=== PATIENT | male | born 1950 | race Caucasian/White ===

== ENCOUNTER 2020-02-25 10:58 | Emergency (ER) | payer MEDICARE, BC ==
--- NOTE | 2020-02-25 11:32 | EDM.PDOC ---
ED HPI GENERAL MEDICAL PROBLEM - General Chief Complaint: Head Injury Stated Complaint: HEAD INJURY Time Seen by Provider: 02/25/20 10:59 Source of Information: Reports: Patient History Limitations: Reports: No Limitations - History of Present Illness INITIAL COMMENTS - FREE TEXT/NARRATIVE: HISTORY AND PHYSICAL: History of present illness: Patient is a 69-year-old male who presents to the ED today with concern of head injury that occurred 2 days ago. Patient states that 2 days ago he was walking on the ice and he was wearing spikes on his shoes. Patient states the spike on his right shoe came loose and he tried to adjust to stop and slipped. Patient states he fell backwards and hit the back of his head. Patient states he did not lose consciousness during the event and was wearing a beanie and a sweatshirt so had "Pat". Patient states that he had some discomfort in the area directly that hit the ice but states other than that he did not have any symptoms until today. Patient states he was driving to go [place] today when he began having a sharp headache that he states was in the back of his head. Patient states he continued to drive and the headache moved to the front of his head. Patient states that he did not have a headache ever since the head injury so felt anxious so decided to come to be evaluated. States he has a history of hypertension and hyperlipidemia but denies any other health history. Patient denies fever, chills, chest pain, shortness of breath, or cough. Denies neck stiff ness, change in vision, syncope, or near syncope. Denies nausea, vomiting, abdominal pain, diarrhea, constipation, or dysuria. Has not noted any blood in urine or stool. Patient has been eating and drinking appropriately. Review of systems: As per history of present illness and below otherwise all systems reviewed and negative. Past medical history: As per history of present illness and as reviewed below otherwise noncontributory. Surgical history: As per history of present illness and as reviewed below otherwise noncontributory. Social history: See social history for further information Family history: As per history of present illness and as reviewed below otherwise noncontributory. Physical exam: General: Patient is alert, oriented, and in no acute distress. Patient laying comfortably on exam table. HEENT: Atraumatic, normocephalic, pupils equal and reactive bilaterally, negative for conjunctival pallor or scleral icterus, mucous membranes moist, TMs normal bilaterally, throat clear, neck supple, nontender, trachea midline. No drooling or trismus noted. No meningeal signs. No hot potato voice noted. Lungs: Clear to auscultation, breath sounds equal bilaterally, chest nontender. Heart: S1S2, regular rate and rhythm without overt murmur Abdomen: Soft, nondistended, nontender. Negative for masses or hepatosplenomegaly. Negative for costovertebral tenderness. Pelvis: Stable nontender. Genitourinary: Deferred. Rectal: Deferred. Skin: Intact, warm, dry. No lesions or rashes noted. Extremities: Atraumatic, negative for cords or calf pain. Neurovascular unremarkable. Neuro: Awake, alert, oriented. Cranial nerves II through XII unremarkable. Cerebellum unremarkable. Motor and sensory unremarkable throughout. Exam nonfocal. Notes: Dr. Segura directly involved in patient care. Upon initial exam, patient states that headache has improved and he would not like any medication for his headache at this time. Awaiting imaging. I called and spoke to Dr. Conley (ER) and Dr. Hopson (Neurosurgery) at [facility] and accepting of patient transfer. Flight arranged. Upon evaluation of patient, his headache has worsened again. Will give therapeutics at this time. Flight at bedside. Voices understanding and is agreeable to plan of care. Denies any further questions or concerns at this time. Patient remains stable throughout course in ED. Diagnostics: Head CT, CBC, CMP, Pt/INR, PTT Therapeutics: Morphine, Zofran Impression: Subdural hematoma with midline shift Plan: Transfer to [facility] via flight to Dr. Conley (ER)/ Dr. Hopson (Neurosurgery) Critical care time is exclusive of billable procedures and the time to perform these procedures. Critical care time was used to prevent vital system organ failure and deterioration. Critical care time includes bedside management and high-complexity decision making requiring my highest level of mental preparedness and attention. This includes reviewing the patient's chart, ordering and reviewing interpreting laboratory studies and imaging results, interpretation of vital signs and EKG, pulse oximetry, and discussion with nursing staff, flight team, and accepting facility team. Patient presented with critical imaging findings that required immediate interve ntion, requiring immediate transfer to a higher level care facilit requiring additional close monitoring and continuation of treatment CC Time: 30 minutes Definitive disposition and diagnosis as appropriate pending reevaluation and review of above. - Related Data Allergies Allergy/AdvReac Type Severity Reaction Status Date / Time No Known Allergies Allergy Verified 02/25/20 11:29 Home Meds: Home Meds Fish Oil/D Hanis-3 Fatty Acids [Fish Oil 1,000 MG] 1 cap PO DAILY 03/09/16 [History] Hydrochlorothiazide 25 mg PO DAILY 03/09/16 [History] Metoprolol Succinate 25 mg PO DAILY 03/09/16 [History] Multivitamin [Multiple Vitamins] 1 tab PO DAILY 03/09/16 [History] Tadalafil [Cialis] 1 tab PO ASDIRECTED PRN 03/09/16 [History] atorvaSTATin [Lipitor] 1 tab PO DAILY 03/09/16 [History] Aspirin 325 mg PO BID #60 tablet 03/15/16 [Rx] Hydrocodone/Acetaminophen [Hydrocodon-Acetaminophen 5-325] 1 dose PO Q4HR PRN #30 tablet 01/18/18 [Rx] Past Medical History Other HEENT History: wears glasses Cardiovascular History: Reports: High Cholesterol, Hypertension Respiratory History: Reports: Sleep Apnea Other Respiratory History: uses CPAP Gastrointestinal History: Reports: GERD Genitourinary History: Reports: None Musculoskeletal History: Reports: Arthritis Other Musculoskeletal History: knees Neurological History: Reports: None Psychiatric History: Reports: Anxiety, Depression Endocrine/Metabolic History: Reports: Obesity/BMI 30+ Hematologic History: Reports: None Immunologic History: Reports: None Oncologic (Cancer) History: Reports: None Dermatologic History: Reports: None - Infectious Disease History Infectious Disease History: Reports: None - Past Surgical History HEENT Surgical History: Reports: Tonsillectomy GI Surgical History: Reports: Colonoscopy, EGD Musculoskeletal Surgical History: Reports: Arthroscopic Knee, Knee Replacement, Other (See Below) Social & Family History - Family History Family Medical History: No Pertinent Family History - Caffeine Use Caffeine Use: Reports: Coffee ED ROS GENERAL - Review of Systems Review Of Systems: Comprehensive ROS is negative, except as noted in HPI. ED EXAM, HEAD INJURY - Physical Exam Exam: See Below (see dictation) Course - Vital Signs Last Recorded V/S: Last Vital Signs Temp 96.7 F L 02/25/20 11:11 Pulse 82 02/25/20 11:54 Resp 16 02/25/20 11:54 BP 160/101 H 02/25/20 11:54 Pulse Ox 93 L 02/25/20 11:54 - Orders/Labs/Meds Labs: Laboratory Tests 02/25/20 02/25/20 02/25/20 Range/Units 11:55 11:55 11:55 WBC 6.17 (4.0-11.0) K/uL RBC 4.69 (4.50-5.90) M/uL Hgb 14.4 (13.0-17.0) g/dL Hct 42.6 (38.0-50.0) % MCV 90.8 (80.0-98.0) fL MCH 30.7 (27.0-32.0) pg MCHC 33.8 (31.0-37.0) g/dL RDW Std Deviation 44.9 (28.0-62.0) fl RDW Coeff of Virgilio 14 (11.0-15.0) % Plt Count 185 (150-400) K/uL MPV 9.50 (7.40-12.00) fL Neut % (Auto) 59.9 (48.0-80.0) % Lymph % (Auto) 30.8 (16.0-40.0) % [place] % (Auto) 7.8 (0.0-15.0) % Eos % (Auto) 1.3 (0.0-7.0) % Baso % (Auto) 0.2 (0.0-1.5) % Neut # (Auto) 3.7 (1.4-5.7) K/uL Lymph # (Auto) 1.9 (0.6-2.4) K/uL [place] # (Auto) 0.5 (0.0-0.8) K/uL Eos # (Auto) 0.1 (0.0-0.7) K/uL Baso # (Auto) 0.0 (0.0-0.1) K/uL Nucleated RBC % 0.0 /100WBC Nucleated RBCs # 0 K/uL INR 1.00 APTT 22.3 (18.6-31.3) SEC Sodium 137 (136-148) mmol/L Potassium 4.1 (3.5-5.1) mmol/L Chloride 103 (98-107) mmol/L Carbon Dioxide 27.5 (21.0-32.0) mmol/L BUN 20 H (7.0-18.0) mg/dL Creatinine 1.2 (0.8-1.3) mg/dL Est Cr Clr Drug Dosing 64.67 mL/min Estimated GFR (MDRD) > 60.0 ml/min Glucose 112 H (74-106) mg/dL Calcium 9.8 (8.5-10.1) mg/dL Total Bilirubin 0.5 (0.2-1.0) mg/dL AST 27 (15-37) IU/L ALT 39 (14-63) IU/L Alkaline Phosphatase 104 (46-116) U/L Total Protein 7.4 (6.4-8.2) g/dL Albumin 3.6 (3.4-5.0) g/dL Globulin 3.8 (2.6-4.0) g/dL Albumin/Globulin Ratio 0.9 (0.9-1.6) Meds: Medications Discontinued Medications Generic Name Dose Route Start Last Admin Trade Name Freq PRN Reason Stop Dose Admin Morphine Sulfate 4 mg 02/25/20 12:12 02/25/20 12:26 Morphine IVPUSH 02/25/20 12:13 4 mg ONETIME ONE Administration Ondansetron HCl 4 mg 02/25/20 12:12 02/25/20 12:26 Zofran IVPUSH 02/25/20 12:13 4 mg ONETIME ONE Administration Departure - Departure Time of Disposition: 12:25 Disposition: DC/Tfer to Acute Hospital 02 Clinical Impression: Subdural hematoma, Midline shift of brain - Discharge Information Referrals: Dionte Berman MD [Primary Care Provider] - Forms: ED Department Discharge Sepsis Event Note (ED) - Focused Exam Vital Signs: Vital Signs Temp Pulse Resp BP Pulse Ox 02/25/20 11:54 82 16 160/101 H 93 L 02/25/20 11:23 77 152/86 H 92 L 02/25/20 11:11 96.7 F L 73 18 157/89 H 95
[2020-02-25 12:10] VITALS: BP 160/101; PULSE 82
--- NOTE | 2020-02-25 12:11 | CT ---
INDICATION: Headache following fall 2 days prior TECHNIQUE: CT head without contrast. COMPARISON: None FINDINGS: CSF spaces: Within normal limits for age. Brain parenchyma: Left holo-hemispheric subdural hematoma measuring up to 12 millimeters in diameter with extension along the anterior falx and effacement of the left hemispheric sulci. 6 millimeters of [id number] midline shift with near total effacement of the left lateral and 3rd ventricles. No mass is identified. Skull base and calvarium: The visualized paranasal sinuses and mastoid air cells demonstrate no acute or significant findings. The visualized orbits are grossly unremarkable. No skull fractures. IMPRESSION: Left holo-hemispheric subdural hematoma measuring up to 12 millimeters in diameter with extension along the anterior falx and effacement of the left hemispheric sulci. 6 millimeters of [id number] midline shift with near total effacement of the left lateral and 3rd ventricles. Findings discussed on 02/25/[address] Veras at 12:09 p.m. Please note that all CT scans at this facility use dose modulation, iterative reconstruction, and/or weight-based dosing when appropriate to reduce radiation dose to as low as reasonably achievable. Dictated by Thanh Kaufman MD @ Feb 25 2020 12:10PM Signed by Dr. Thanh Kaufman @ Feb 25 2020 12:10PM
--- NOTE | 2020-02-25 12:17 | PCM.SN.2 ---
- Free Text/Narrative Note: I saw and evaluated the patient along with the mid-level provider. My independent exam confirms no palpable deformity of the cranium there is no midline tenderness of the C-spine he has no midline tenderness with neck range of motion you can clinically clear the spine. Traumatic exam involving the chest abdomen pelvis and extremities is likewise atraumatic. He is awake and alert. His neurologic exam is normal. CT scan has a left-sided subdural hematoma with approximately 6 mm of midline shift and we are currently attempting to arrange transport to [facility] in my not for subspecialty care and further management. Vital signs remained stable he is complaining of a worsening posterior headache and morphine Zofran ordered for symptoms. In my opinion the patient does not meet trauma activation criteria. The injury is > 24 hours old. He is on an 81 mg ASA, no blood thinners, no NSAIDs today. Pt remained in stable condition his mental status remained normal. He was accepted for transfer to [facility] by neurosurgery and the ED provider. Pt was transfered via fixed wing due to significant delay for rotor and time critical diagnosis which made ground transport less safe.
[2020-02-25] MEDS: Ondansetron 4 MG/2 ML SDV IVPUSH ONE (12:26)
[2020-02-25] MEDS: Morphine 4 MG/ML Syringe IVPUSH ONE (12:26)
[2020-02-25 12:30] LABS: BLOOD UREA NITROGEN,BUN 20 mg/dL (7.0-18.0); CARBON DIOXIDE,CO2 27.5 mmol/L (21.0-32.0); CHLORIDE,CL 103 mmol/L (98-107); GLUCOSE RANDOM 112 mg/dL (74-106); POTASSIUM,K 4.1 mmol/L (3.5-5.1); SODIUM,NA 137 mmol/L (136-148)
== END 2020-02-25 12:36 ==
LOC: MW.ED 10:58
DX: S06.5X9A Traumatic subdural hemorrhage with loss of consciousness of unspecified duration, initial encounter (principal); E78.00 Pure hypercholesterolemia, unspecified; I10 Essential (primary) hypertension; M19.90 Unspecified osteoarthritis, unspecified site; E66.9 Obesity, unspecified; Z68.41 Body mass index [BMI] 40.0-44.9, adult; Z79.82 Long term (current) use of aspirin; Z79.899 Other long term (current) drug therapy; W00.0XXA Fall on same level due to ice and snow, initial encounter
CPT/HCPCS: 70450; 70450-26; 80053; 85025; 85610; 85730; 96374; 96375; 99285-25; 99291; J2270; J2405

== ENCOUNTER 2020-02-27 16:27 | Emergency (ER) | payer MEDICARE, BC ==
[2020-02-27] MEDS ORDERED: Sodium Chloride 0.9% 2.5 ML Syringe FLUSH PRN (16:31)
[2020-02-27] MEDS ORDERED: Sodium Chloride 0.9% 10 ML Syringe FLUSH PRN (16:31)
[2020-02-27 17:07] LABS: BLOOD UREA NITROGEN,BUN 17 mg/dL (7.0-18.0); CARBON DIOXIDE,CO2 27.3 mmol/L (21.0-32.0); CHLORIDE,CL 101 mmol/L (98-107); GLUCOSE RANDOM 99 mg/dL (74-106); POTASSIUM,K 3.9 mmol/L (3.5-5.1); SODIUM,NA 137 mmol/L (136-148)
--- NOTE | 2020-02-27 17:30 | EDM.PDOC ---
ED HPI GENERAL MEDICAL PROBLEM - General Chief Complaint: Neuro Symptoms/Deficits Stated Complaint: RECENT HEAD INJURY, FORGETFUL Time Seen by Provider: 02/27/20 16:30 - History of Present Illness INITIAL COMMENTS - FREE TEXT/NARRATIVE: Patient is a 69-year-old male with recent visit to the ED and transferred to [facility] for subdural hematoma presents with lack of memory. On initial evaluation the patient is quite confused he does not recall the fall a few days ago with the transfer to a higher level of care or anything else. He states that he woke up from a nap and his family was standing around him. He ca nnot recall anything else. He denies complaint and otherwise feels well beyond this. He acknowledges that this seems unusual. Additional history provided by the patient's son. He received a call from his mother that the patient had been normal in the morning had woken up from a nap this afternoon and was not acting right and on son's arrival he seemed sluggish and lethargic and confused and disoriented. There is no reported urinary or bowel incontinence no reported shaking. - Related Data Allergies Allergy/AdvReac Type Severity Reaction Status Date / Time No Known Allergies Allergy Verified 02/27/20 16:34 Home Meds: Home Meds Hydrochlorothiazide 25 mg PO DAILY 03/09/16 [History] Metoprolol Succinate 25 mg PO DAILY 03/09/16 [History] atorvaSTATin [Lipitor] 1 tab PO DAILY 03/09/16 [History] Tamsulosin HCl 0.4 mg PO DAILY 02/25/20 [History] Vilazodone [Viibryd] 40 mg PO DAILY 02/25/20 [History] levETIRAcetam [Keppra] 500 mg PO BID 30 Days #60 tablet 02/27/20 [Rx] Past Medical History Other HEENT History: wears glasses Cardiovascular History: Reports: High Cholesterol, Hypertension Respiratory History: Reports: Sleep Apnea Other Respiratory History: uses CPAP Gastrointestinal History: Reports: GERD Genitourinary History: Reports: None Musculoskeletal History: Reports: Arthritis Other Musculoskeletal History: knees Neurological History: Reports: None Psychiatric History: Reports: Anxiety, Depression Endocrine/Metabolic History: Reports: Obesity/BMI 30+ Hematologic History: Reports: None Immunologic History: Reports: None Oncologic (Cancer) History: Reports: None Dermatologic History: Reports: None - Infectious Disease History Infectious Disease History: Reports: None - Past Surgical History Head Surgeries/Procedures: Reports: None HEENT Surgical History: Reports: Tonsillectomy Other HEENT Surgeries/Procedures: removal of neck mass Cardiovascular Surgical History: Reports: None Respiratory Surgical History: Reports: None GI Surgical History: Reports: Colonoscopy, EGD Male Surgical History: Reports: None Endocrine Surgical History: Reports: None Neurological Surgical History: Reports: None Musculoskeletal Surgical History: Reports: Arthroscopic Knee, Knee Replacement, Other (See Below) Other Musculoskeletal Surgeries/Procedures:: removal of growth from tailbone Oncologic Surgical History: Reports: None Social & Family History - Family History Family Medical History: No Pertinent Family History - Tobacco Use Tobacco Use Status *Q: Never Tobacco User - Caffeine Use Caffeine Use: Reports: None ED ROS GENERAL - Review of Systems Review Of Systems: See Below Free Text/Narrative/Comment: General: No fever. Skin: No rash. Eyes: No vision problems. ENT: No sore throat. Neck: No neck stiffness. Respiratory: No shortness of breath. Cardiac: No chest pain. Gastrointestinal: No nausea, vomiting or abdominal pain. Urinary: No dysuria. Musculoskeletal: No myalgias/arthralgias. Neurologic: No headache. ED EXAM, GENERAL - Physical Exam Exam: See Below Free Text/Narrative:: General Appearance: No acute distress, appears comfortable Skin: No rash HEENT: Normocephalic/atraumatic, sclera anicteric, mucous membranes moist Neck: Normal range of motion Chest and Lungs: Bilateral breath sounds, clear to auscultation Cardiovascular: Regular rate and rhythm, no murmur Abdomen: Soft, non-tender Back: Normal Musculoskeletal: No edema or tenderness Neurologic: Cranial nerves III through XI intact bilaterally, strength 5 out of 5 in upper lower extremities, normal [id number] bilaterally, oriented to person and place but not to time unsure of date unsure of year does not recall any recent events Psychiatric: Appropriate, cooperative #1 Interpretation EKG Date: 02/27/20 Time: 17:31 EKG Interpretation Comments: EKG demonstrates normal sinus rhythm with a rate of 95 normal axis and intervals without acute ischemia Course - Vital Signs Last Recorded V/S: Last Vital Signs Temp 98.6 F 02/27/20 16:34 Pulse 90 02/27/20 18:16 Resp 17 02/27/20 16:34 BP 166/103 H 02/27/20 18:16 Pulse Ox 93 L 02/27/20 18:16 - Orders/Labs/Meds Orders: Active Orders 24 hr Category Date Time Status EKG Documentation Completion [RC] STAT Care 02/27/20 16:31 Active Sodium Chloride 0.9% [Saline Flush] Med 02/27/20 16:31 Active 10 ml FLUSH ASDIRECTED PRN Sodium Chloride 0.9% [Saline Flush] Med 02/27/20 16:31 Active 2.5 ml FLUSH ASDIRECTED PRN Saline Lock Insert [OM.PC] Stat Oth 02/27/20 16:31 Ordered Medication Orders Sodium Chloride (Saline Flush) 10 ml FLUSH ASDIRECTED PRN PRN Reason: Keep Vein Open Last Admin: 02/27/20 16:39 Dose: 10 ml Documented by: LORRI Sodium Chloride (Saline Flush) 2.5 ml FLUSH ASDIRECTED PRN PRN Reason: Keep Vein Open Last Admin: 02/27/20 16:38 Dose: 2.5 ml Documented by: LORIR Labs: Laboratory Tests 02/27/20 02/27/20 Range/Units 16:34 16:34 WBC 8.21 (4.0-11.0) K/uL RBC 4.78 (4.50-5.90) M/uL Hgb 14.8 (13.0-17.0) g/dL Hct 43.5 (38.0-50.0) % MCV 91.0 (80.0-98.0) fL MCH 31.0 (27.0-32.0) pg MCHC 34.0 (31.0-37.0) g/dL RDW Std Deviation 44.7 (28.0-62.0) fl RDW Coeff of Virgilio 14 (11.0-15.0) % Plt Count 211 (150-400) K/uL MPV 9.50 (7.40-12.00) fL Neut % (Auto) 55.2 (48.0-80.0) % Lymph % (Auto) 36.7 (16.0-40.0) % Porter % (Auto) 6.7 (0.0-15.0) % Eos % (Auto) 1.0 (0.0-7.0) % Baso % (Auto) 0.4 (0.0-1.5) % Neut # (Auto) 4.5 (1.4-5.7) K/uL Lymph # (Auto) 3.0 H (0.6-2.4) K/uL Porter # (Auto) 0.6 (0.0-0.8) K/uL Eos # (Auto) 0.1 (0.0-0.7) K/uL Baso # (Auto) 0.0 (0.0-0.1) K/uL Nucleated RBC % 0.0 /100WBC Nucleated RBCs # 0 K/uL Sodium 137 (136-148) mmol/L Potassium 3.9 (3.5-5.1) mmol/L Chloride 101 (98-107) mmol/L Carbon Dioxide 27.3 (21.0-32.0) mmol/L BUN 17 (7.0-18.0) mg/dL Creatinine 1.1 (0.8-1.3) mg/dL Est Cr Clr Drug Dosing 70.55 mL/min Estimated GFR (MDRD) > 60.0 ml/min Glucose 99 (74-106) mg/dL Calcium 9.9 (8.5-10.1) mg/dL Total Bilirubin 0.5 (0.2-1.0) mg/dL AST 19 (15-37) IU/L ALT 34 (14-63) IU/L Alkaline Phosphatase 108 (46-116) U/L Troponin I < 0.050 (0.000-0.056) ng/mL Total Protein 7.9 (6.4-8.2) g/dL Albumin 3.8 (3.4-5.0) g/dL Globulin 4.1 H (2.6-4.0) g/dL Albumin/Globulin Ratio 0.9 (0.9-1.6) Ethyl Alcohol < 3.0 mg/dL Meds: Medications Generic Name Dose Route Start Last Admin Trade Name Freq PRN Reason Stop Dose Admin Sodium Chloride 10 ml 02/27/20 16:31 02/27/20 16:39 Saline Flush FLUSH 10 ml ASDIRECTED PRN Administration Keep Vein Open Sodium Chloride 2.5 ml 02/27/20 16:31 02/27/20 16:38 Saline Flush FLUSH 2.5 ml ASDIRECTED PRN Administration Keep Vein Open Discontinued Medications Generic Name Dose Route Start Last Admin Trade Name Bennett PRN Reason Stop Dose Admin Levetiracetam 500 mg 02/27/20 17:55 02/27/20 18:15 Keppra PO 02/27/20 17:56 500 mg NOW ONE Administration Departure - Departure Time of Disposition: 18:41 Disposition: Home, Self-Care 01 Condition: Good Clinical Impression: Seizure, Subdural hematoma - Discharge Information *PRESCRIPTION DRUG MONITORING PROGRAM REVIEWED*: Not Applicable *COPY OF PRESCRIPTION DRUG MONITORING REPORT IN PATIENT YUN: Not Applicable Prescriptions: levETIRAcetam [Keppra] 500 mg PO BID 30 Days #60 tablet Instructions: Seizure, Adult Forms: ED Department Discharge Additional Instructions: Please be sure to fill your Keppra prescription your next dose is due tomorrow morning. You should receive a phone call from the neurosurgery clinic between 730 and 8 AM on Saturday. If you do not hear from them by 9 AM please call them yourself. The following information is given to patients seen in the emergency department who are being discharged to home. This information is to outline your options for follow-up care. We provide all patients seen in our emergency department with a follow-up referral. The need for follow-up, as well as the timing and circumstances, are variable depending upon the specifics of your emergency department visit. If you don't have a primary care physician on staff, we will provide you with a referral. We always advise you to contact your personal physician following an emergency department visit to inform them of the circumstance of the visit and for follow-up with them and/or the need for any referrals to a consulting specialist. The emergency department will also refer you to a specialist when appropriate. This referral assures that you have the opportunity for follow-up care with a specialist. All of these measure are taken in an effort to provide you with optimal care, which includes your follow-up. Under all circumstances we always encourage you to contact your private physician who remains a resource for coordinating your care. When calling for follow-up care, please make the office aware that this follow-up is from your recent emergency room visit. If for any reason you are refused follow-up, please contact the [facility] Emergency Department at and asked to speak to the emergency department charge nurse. Sepsis Event Note (ED) - Evaluation Sepsis Screening Result: No Definite Risk - Focused Exam Vital Signs: Vital Signs Temp Pulse Resp BP Pulse Ox 02/27/20 18:16 90 166/103 H 93 L 02/27/20 16:34 98.6 F 107 H 17 152/101 H 98 - My Orders Last 24 Hours: My Active Orders 02/27/20 16:31 EKG Documentation Completion [RC] STAT Sodium Chloride 0.9% [Saline Flush] 10 ml FLUSH ASDIRECTED PRN Sodium Chloride 0.9% [Saline Flush] 2.5 ml FLUSH ASDIRECTED PRN Saline Lock Insert [OM.PC] Stat - Assessment/Plan Last 24 Hours: My Active Orders 02/27/20 16:31 EKG Documentation Completion [RC] STAT Sodium Chloride 0.9% [Saline Flush] 10 ml FLUSH ASDIRECTED PRN Sodium Chloride 0.9% [Saline Flush] 2.5 ml FLUSH ASDIRECTED PRN Saline Lock Insert [OM.PC] Stat Assessment:: Patient was seen immediately by myself at the request of the nurses. History is most consistent to me with seizure likely related to his known intracranial hemorrhage. Syncope considered but felt less likely worsening bleeding also considered and emergent CT ordered. However this is also felt less likely. Disposition pending results and discussion with neurosurgery. 1530: Per Dr. Rubio (radiology) Pt's CT shows stable left sided subdural hematoma with similar mass effect and shift. Labs unremarkable. On reassessment the patient is now back to normal he recalls all of the events well he remembers the flight in the helicopter he remembers the discussion with the neurosurgeon at [place] can recall Dr. Yeh recommendations in detail. He remembers being normal when he woke up this morning he remembers going down for a nap and remembers waking up with multiple family members around him. Patient discussed in full with Dr. Martins the neurosurgeon regional agronomist at [facility]. She stated that emergent drainage of these in absence of herniation or other truly emergent etiology is often quite morbid and that people often do better if it is evacuated with bur hole after 1 to 2 weeks. We discussed the CT findings in detail and I read the report to her we discussed that it appeared stable from his prior imaging. We discussed his clinical condition as well. She and I are in agreement that seizure is most likely. Given his stable CT scan his normal evaluation here no indication for transfer at this time. She recommends starting the patient on 500 mg of Keppra twice daily. The patient will be seen in their clinic this coming Saturday. He should expect a phone call between 730 and 8 AM with an appointment time. 1840: Patient was initially quite hypertensive this could easily have been related to the seizure. He reports compliance with his medications. On repeat assessment his blood pressure is improved markedly with an acceptable systolic. Patient is felt stable for discharge return precautions discussed and understood first dose of Keppra provided here. Instructions for follow-up with neurosurgery discussed and understood as well.
--- NOTE | 2020-02-27 17:34 | CT ---
Indication: Change in mental status. Known subdural. Technique: CT examination of brain was performed. Imaging was acquired from the skullbase to the vertex. Contrast was not administered. Comparison: A similar study from February 25, 2020 Findings: There is no calvarial fracture. There is a relatively large left-sided subdural hematoma. This overlies the near entirety of the left supra tentorial brain but is thickest in the posterior frontal and parietal area. Based on coronal measurements, this maximally measures between 1.2 and 1.4 centimeters which is unchanged by my measurements. This also extends interhemispheric and has some component overlying the falx. There is mass effect upon the subjacent left brain. The left lateral ventricular system is partially effaced and the 3rd ventricle is completely effaced. Based on midline coronal measurements, there is approximately 6-7 millimeters of rightward shift. Neurosurgical consultation regarding these findings is advised. I discussed the above findings with Dr. Segura at 5:29 p.m. on February 27, 2020 Impression: Relatively large left-sided subdural hematoma. Neurosurgical consultation is advised. Please note that all CT scans at this facility use dose modulation, iterative reconstruction, and/or weight-based dosing when appropriate to reduce radiation dose to as low as reasonably achievable. Dictated by Stephane Rubio MD @ Feb 27 2020 5:24PM Signed by Dr. Stephane Rubio @ Feb 27 2020 5:33PM
[2020-02-27] MEDS ORDERED: levETIRAcetam Soln 500 MG/5 ML Cup PO ONE (17:55)
[2020-02-27 18:56] VITALS: BP 166/95; PULSE 93
== END 2020-02-27 18:55 | disposition home or self-care (01) ==
LOC: MW.ED 16:27
DX: I62.00 Nontraumatic subdural hemorrhage, unspecified (principal); R56.9 Unspecified convulsions; E78.00 Pure hypercholesterolemia, unspecified; I10 Essential (primary) hypertension; F41.9 Anxiety disorder, unspecified; F32.9 Major depressive disorder, single episode, unspecified; E66.9 Obesity, unspecified; Z68.38 Body mass index [BMI] 38.0-38.9, adult; Z79.899 Other long term (current) drug therapy
CPT/HCPCS: 70450; 80053; 80179; 84484; 85025; 93005; 99284; A9270; 99285

== ENCOUNTER 2022-06-01 06:42 | Day surgery (SDC) | payer MEDICARE, OTHER ==
[~2022-06-01 06:42] MED LIST: Lactated Ringers 1,000 ML IV SCH
[2022-06-01] MEDS ORDERED: Bupivacaine 0.25% 30 ML SDV ONE (07:23)
[2022-06-01] MEDS ORDERED: fentaNYL 100 MCG/2 ML SDV ONE (07:35)
[2022-06-01] MEDS ORDERED: Propofol 200 MG/20 ML SDV ONE (07:35)
[2022-06-01] MEDS ORDERED: Ondansetron 4 MG/2 ML SDV IVPUSH PRN (07:41)
[2022-06-01] MEDS ORDERED: Metoclopramide 10 MG/2 ML SDV IVPUSH PRN (07:41)
[2022-06-01] MEDS ORDERED: Albuterol 0.083% 2.5 MG/3 ML Neb Soln NEB PRN (07:41)
[2022-06-01] MEDS ORDERED: fentaNYL 50 MCG/ML SDV IVPUSH PRN (07:41)
[2022-06-01] MEDS ORDERED: Naloxone 0.4 MG/ML SDV IVPUSH PRN (07:41)
[2022-06-01] MEDS ORDERED: Morphine 2 MG/ML SYRINGE IVPUSH PRN (07:41)
[2022-06-01] MEDS ORDERED: HYDROmorphone 1 MG/ML Syringe IVPUSH PRN (07:41)
[2022-06-01] MEDS ORDERED: Bupivacaine 0.5% 30 ML SDV ONE (07:55)
[2022-06-01] MEDS ORDERED: ePHEDrine 50 MG/ML SDV ONE (08:43)
[2022-06-01] MEDS ORDERED: Rocuronium Bromide 50 MG/5 ML Syringe ONE (08:43)
[2022-06-01] MEDS ORDERED: Sugammadex Sodium 200 MG/2 ML VIAL ONE (09:08)
[2022-06-01] MEDS ORDERED: Acetaminophen/HYDROcodone 325-5 MG Tab PO PRN (09:30)
[2022-06-01] MEDS ORDERED: Lactated Ringers 1,000 ML IV SCH (09:30)
[2022-06-01 10:15] VITALS: BP 123/60; PULSE 83
== END 2022-06-01 10:25 | disposition home or self-care (01) ==
LOC: MW.SDS 06:42
PROVIDERS: ATTEND Surgery
DX: L72.0 Epidermal cyst (principal); F41.9 Anxiety disorder, unspecified; M17.0 Bilateral primary osteoarthritis of knee; E78.00 Pure hypercholesterolemia, unspecified; I10 Essential (primary) hypertension; Z79.899 Other long term (current) drug therapy; Z82.49 Family history of ischemic heart disease and other diseases of the circulatory system; Z81.1 Family history of alcohol abuse and dependence
CPT/HCPCS: 11406; J2704; J3010; J3490; J7120; 00300